=== PATIENT | male | born 2000 | race Caucasian/White ===

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

== ENCOUNTER 2020-06-26 18:46 | Emergency (ER) | payer OTHER ==
[2020-06-26] MEDS ORDERED: HYDROmorphone 0.5 MG/0.5 ML Syringe IM ONE (20:38)
--- NOTE | 2020-06-26 20:43 | EDM.PDOC ---
ED HPI GENERAL MEDICAL PROBLEM - General Chief Complaint: Genitourinary Problem Stated Complaint: LEFT SIDE AND TESTICLE BURNING NEEDLES Time Seen by Provider: 06/26/20 20:26 Source of Information: Reports: Patient, RN Notes Reviewed History Limitations: Reports: No Limitations - History of Present Illness INITIAL COMMENTS - FREE TEXT/NARRATIVE: Patient is a 19-year-old male who presents to the ED for evaluation of his left testicular swelling and tenderness. Patient notes that he has been having left groin pain that radiates into his left testicle, that feels like a sharp burning needle sensation, for the past few days. He did go to the clinic and was tested for STDs and states all of these were negative. He is further denying any burning or urinary frequency or urgency. He is not noticing any discharge coming from the penis. He is appreciating a little bit of swelling on the left side, along with tenderness along the posterior teste. He is not felt any pain like this before. He has had no abdomen surgeries. He did not take any sort of pain medications prior to this. He is not having any fevers or chills, cough some shortness of breath, nausea/vomiting/diarrhea. Left Upper Abdomen Pain Score (Numeric/FACES): 5 - Related Data Allergies Allergy/AdvReac Type Severity Reaction Status Date / Time No Known Allergies Allergy Verified 06/26/20 19:33 Home Meds: Home Meds Doxycycline [Vibramycin] 100 mg PO BID 14 Days #28 tab 06/26/20 [Rx] Hydrocodone/Acetaminophen [Hydrocodone-Acetamin 5-325 mg] 1 each PO Q6H PRN #12 tablet 06/26/20 [Rx] Past Medical History - Past Health History Medical/Surgical History: Denies Medical/Surgical History Cardiovascular History: Reports: None Respiratory History: Reports: None Gastrointestinal History: Reports: None Oncologic (Cancer) History: Reports: None - Past Surgical History HEENT Surgical History: Reports: Adenoidectomy, Myringotomy w Tube(s), Tonsillectomy Musculoskeletal Surgical History: Reports: Arthroscopic Knee, Other (See Below) Other Musculoskeletal Surgeries/Procedures:: bilateral wrist sx Social & Family History - Family History Family Medical History: Noncontributory - Tobacco Use Smoking Status *Q: Current Every Day Smoker Years of Tobacco use: 2 Packs/Tins Daily: 1 - Caffeine Use Caffeine Use: Reports: Coffee, Energy Drinks, Soda, Tea - Recreational Drug Use Recreational Drug Use: No - Living Situation & Occupation Living situation: Reports: with Family Occupation: Student ED ROS GENERAL - Review of Systems Review Of Systems: Comprehensive ROS is negative, except as noted in HPI. ED EXAM, RENAL/ - Physical Exam Exam: See Below Exam Limited By: No Limitations General Appearance: Alert, WD/WN, No Apparent Distress Respiratory/Chest: No Respiratory Distress, Lungs Clear, Normal Breath Sounds, No Accessory Muscle Use, Chest Non-Tender Cardiovascular: Normal Peripheral Pulses, Regular Rate, Rhythm, No Murmur (Male) Exam: No Hernia, Normal Inspection, Circumcised, Scrotal Swelling (mild; tipple greaser present in room), Scrotum Tenderness (L) (mild), Testicular Tenderness (L) (mild). No: Urethral Discharge Neurological: Alert, Oriented, Normal Cognition, No Motor/Sensory Deficits Psychiatric: Normal Affect, Normal Mood Skin Exam: Warm, Dry, Intact, Normal Color, No Rash Course - Vital Signs Last Recorded V/S: Last Vital Signs Temp 98.8 F 06/26/20 19:31 Pulse 86 06/26/20 19:31 Resp 19 06/26/20 19:31 BP 127/102 H 06/26/20 19:31 Pulse Ox 99 06/26/20 19:31 - Orders/Labs/Meds Meds: Medications Discontinued Medications Generic Name Dose Route Start Last Admin Trade Name Onesimoq PRN Reason Stop Dose Admin Doxycycline Hyclate 100 mg 06/26/20 22:12 Vibramycin PO 06/26/20 22:13 ONETIME ONE Hydromorphone HCl 0.5 mg 06/26/20 20:38 06/26/20 20:54 Dilaudid IM 06/26/20 20:39 0.5 mg ONETIME ONE Administration - Re-Assessments/Exams Free Text/Narrative Re-Assessment/Exam: 06/26/20 20:42 Patient presents to the ED for evaluation of his testicular pain and swelling. Have ordered a scrotal ultrasound and contents for initial evaluation, along with 0.5 mg IM Dilaudid for pain management. 06/26/20 22:18 The patient's ultrasound demonstrated a small hypoechoic area within the left epididymitis possibly due to slight edema from epididymitis. Otherwise no additional abnormality are seen on the testicular ultrasound exam. Patient was started on doxycycline 100 mg twice daily x14 days. I did make him aware that if he does not get symptomatic relief within 3 days, that he should go see someone for reevaluation. He expressed understanding at this time. Departure - Departure Time of Disposition: 22:22 Disposition: Home, Self-Care 01 Condition: Good Clinical Impression: Epididymitis - Discharge Information *PRESCRIPTION DRUG MONITORING PROGRAM REVIEWED*: Yes *COPY OF PRESCRIPTION DRUG MONITORING REPORT IN PATIENT JOSE C: No Prescriptions: Doxycycline [Vibramycin] 100 mg PO BID 14 Days #28 tab Instructions: Epididymitis Referrals: Pasha Lua PA-C [Primary Care Provider] - Forms: ED Department Discharge Additional Instructions: You were evaluated in the ER today for your left-sided groin/testicular pain. Your ultrasound did demonstrate that you do have epididymitis, which is an infection of the structures that holds the testes in the scrotum. Management of this is antibiotics, you were given 100 mg doxycycline by mouth in the ER visit, and will be given a prescription for doxycycline, 1 tab 2 times a day for the next 14 days for further management. This antibiotic can take up to 48 hours to start working, if you are not getting any sort of symptomatic relief within 72 hours, you should seek medical care for reevaluation. Recommend you take 500 mg Tylenol or 600 mg ibuprofen every 6 hours as needed for further pain relief. Do not exceed 4000 mg Tylenol or 3200 mg ibuprofen in a 24-hour time span. You were given a prescription for a strong pain medication, hydrocodone/acetaminophen 5/325 mg., please take 1 tab every 6 hours as needed for pain not relieved by Tylenol or ibuprofen alone. Please note this medication does contain Tylenol in it, so do not take more than 4000 mg in a 24- hour time span. These medications can be addictive, so please take as few as possible to achieve adequate pain control. These meds can also be quite constipating, recommend that you increase your oral fluid intake and take a stool softener like MiraLAX while taking these medications. Do not drive while taking this medication. 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 Please return to the ER at any time if your symptoms change or worsen. Sepsis Event Note (ED) - Evaluation Sepsis Screening Result: No Definite Risk - Focused Exam Vital Signs: Vital Signs Temp Pulse Resp BP Pulse Ox 06/26/20 19:31 98.8 F 86 19 127/102 H 99
--- NOTE | 2020-06-26 22:01 | US ---
Testicular ultrasound: Multiple real-time images of the testicles were obtained. Comparison: No prior testicular imaging is available. Both testicles have a homogeneous ultrasound appearance. No intratesticular abnormality is seen. Both arterial and venous blood flow are seen within the testicles. No hydrocele is seen. Small hypoechoic area is noted within the left epididymis. This may represent slight edema from mild left-sided epididymitis. No hydroceles are seen. Measurements: Right testicle: 4.4 x 3.1 x 2.2 cm Left testicle: 4.4 x 3.1 x 2.4 cm. Impression: 1. Small hypoechoic area within the left epididymis possibly due to slight edema from epididymitis. 2. No additional abnormality is seen on testicular ultrasound exam. Diagnostic code #3 This report was dictated in MDT
[2020-06-26] MEDS ORDERED: Doxycycline 100 MG Cap PO ONE (22:12)
[2020-06-27 00:36] VITALS: BP 140/59; PULSE 64
== END 2020-06-26 22:42 | disposition home or self-care (01) ==
LOC: JD.ED 18:46
DX: N45.1 Epididymitis (principal); F17.210 Nicotine dependence, cigarettes, uncomplicated
CPT/HCPCS: 76870; 93975; 96372; 99284; A9270; J1170; 99283

== ENCOUNTER 2020-07-01 04:36 | Emergency (ER) | payer OTHER ==
--- NOTE | 2020-07-01 04:59 | EDM.PDOC ---
ED HPI GENERAL MEDICAL PROBLEM - General Chief Complaint: Genitourinary Problem Stated Complaint: burning in the badomin area and Testicular pain Time Seen by Provider: 07/01/20 04:54 - History of Present Illness INITIAL COMMENTS - FREE TEXT/NARRATIVE: 19-year-old male presents the emergency room with pain and burning in the testicular area. This is been going on for couple of weeks. Patient was seen here on the diagnosed with epididymitis demonstrated on ultrasound and was started on doxycycline 100 mg twice daily for 14 days. The patient presents today not getting any better. He is not aware of any fevers or chills he has not had any abdominal symptoms such as nausea vomiting constipation or diarrhea. Patient denies any urethral drainage or discharge. He denies any history of anal intercourse. Scrotum Pain Score (Numeric/FACES): 5 - Related Data Allergies Allergy/AdvReac Type Severity Reaction Status Date / Time No Known Allergies Allergy Verified 07/01/20 05:31 Home Meds: Home Meds Doxycycline [Vibramycin] 100 mg PO BID 14 Days #28 tab 06/26/20 [Rx] Hydrocodone/Acetaminophen [Hydrocodone-Acetamin 5-325 mg] 1 each PO Q6H PRN #12 tablet 06/27/20 [Rx] Past Medical History - Past Health History Medical/Surgical History: Denies Medical/Surgical History Cardiovascular History: Reports: None Respiratory History: Reports: None Gastrointestinal History: Reports: None Oncologic (Cancer) History: Reports: None - Past Surgical History HEENT Surgical History: Reports: Adenoidectomy, Myringotomy w Tube(s), Tonsillectomy Musculoskeletal Surgical History: Reports: Arthroscopic Knee, Other (See Below) Other Musculoskeletal Surgeries/Procedures:: bilateral wrist sx Social & Family History - Family History Family Medical History: Noncontributory - Caffeine Use Caffeine Use: Reports: Coffee, Energy Drinks, Soda, Tea - Living Situation & Occupation Living situation: Reports: with Family Occupation: Student ED ROS GENERAL - Review of Systems Review Of Systems: See Below Constitutional: Reports: No Symptoms HEENT: Reports: No Symptoms Respiratory: Reports: No Symptoms Cardiovascular: Reports: No Symptoms Endocrine: Reports: No Symptoms GI/Abdominal: Denies: Constipation, Diarrhea, Nausea, Vomiting : Reports: Other (Testicular pain left much more so than right radiating proximally). Denies: Frequency, Urgency Skin: Reports: No Symptoms Neurological: Reports: No Symptoms Psychiatric: Reports: No Symptoms Hematologic/Lymphatic: Reports: No Symptoms Immunologic: Reports: No Symptoms ED EXAM, GI/ABD - Physical Exam Exam: See Below Exam Limited By: No Limitations General Appearance: Alert, No Apparent Distress Head: Atraumatic, Normocephalic Neck: Normal Inspection, Supple, Non-Tender, Full Range of Motion Respiratory/Chest: No Respiratory Distress, Lungs Clear, Normal Breath Sounds Cardiovascular: Regular Rate, Rhythm, No Edema, No Murmur GI/Abdominal Exam: Normal Bowel Sounds, Soft, Other (No palpable tenderness however the patient complains of pain radiating proximally from the left testicle. No rigidity rebound or guarding.) Back Exam: Normal Inspection. No: CVA Tenderness (L), CVA Tenderness (R) Neurological: Alert, Oriented, Normal Cognition Course - Vital Signs Last Recorded V/S: Last Vital Signs Temp 36.4 C 07/01/20 04:49 Pulse 78 07/01/20 04:49 Resp 18 07/01/20 04:49 BP 129/82 07/01/20 04:49 Pulse Ox 99 07/01/20 04:49 - Orders/Labs/Meds Orders: Active Orders 24 hr Category Date Time Status CULTURE URINE [RM] Stat Lab 07/01/20 05:14 Received Labs: Laboratory Tests 07/01/20 07/01/20 Range/Units 05:14 05:14 Urine Color Yellow (Yellow) Urine Appearance Clear (Clear) Urine pH 6.0 (5.0-8.0) Ur Specific [place] > or = 1.030 (1.005-1.030) Urine Protein Negative (Negative) Urine Glucose (UA) Negative (Negative) Urine Ketones Negative (Negative) Urine Occult Blood Negative (Negative) Urine Nitrite Negative (Negative) Urine Bilirubin Negative (Negative) Urine Urobilinogen 0.2 (0.2-1.0) Ur Leukocyte Esterase Negative (Negative) C trachomatis DNA (PCR) Not detected N gonorrhoeae DNA (PCR) Not detected Meds: Medications Discontinued Medications Generic Name Dose Route Start Last Admin Trade Name Freq PRN Reason Stop Dose Admin Ceftriaxone Sodium 1 gm/ 0 gm 07/01/20 05:33 07/01/20 05:57 Lidocaine HCl 2.1 ml IM 07/01/20 05:34 2.1 inj ONETIME ONE Administration - Re-Assessments/Exams Free Text/Narrative Re-Assessment/Exam: 07/01/20 05:47 Urine sent for culture sensitivity urinalysis and GC and chlamydia results of this could be obstructed because of doxycycline treatment. We will give him 1 g of Rocephin 4 times the usual dose to cover GC however with the unreliable culture and sensitivity other unpredictable organisms could be present. We will have him continue the doxycycline for the remainder of the 14-day course. Departure - Departure Time of Disposition: 07:04 Disposition: Home, Self-Care 01 Clinical Impression: Epididymitis - Discharge Information Referrals: Pasha Lua PA-C [Primary Care Provider] - Forms: ED Department Discharge Additional Instructions: Turn to the emergency room with any questions problems or worsening symptoms. Follow-up in the clinic with your regular healthcare provider early this next week for recheck. Continue the doxycycline 1 twice a day until all gone Sepsis Event Note (ED) - Evaluation Sepsis Screening Result: No Definite Risk - Focused Exam Vital Signs: Vital Signs Temp Pulse Resp BP Pulse Ox 07/01/20 04:49 36.4 C 78 18 129/82 99 - My Orders Last 24 Hours: My Active Orders 07/01/20 05:14 CULTURE URINE [RM] Stat - Assessment/Plan Last 24 Hours: My Active Orders 07/01/20 05:14 CULTURE URINE [RM] Stat
[2020-07-01 05:06] VITALS: BP 129/82; PULSE 78
[2020-07-01] MEDS ORDERED: cefTRIAXone 1 GM, Lidocaine 1% 2.1 ML IM ONE ×2 (05:33)
[2020-07-01 07:01] LABS: C. TRACHOMATIS BY PCR NOT DETECTED; N. GONORRHOEAE BY PCR NOT DETECTED
== END 2020-07-01 07:25 | disposition home or self-care (01) ==
LOC: JD.ED 04:36
DX: N45.1 Epididymitis (principal)
CPT/HCPCS: 81003; 87086; 87491; 87591; 96372; 99284; J0696; J2001; 99283

== ENCOUNTER 2020-07-07 01:21 | Emergency (ER) | payer OTHER ==
[2020-07-07 01:34] VITALS: BP 159/86; PULSE 92
[2020-07-07] MEDS ORDERED: LORazepam 1 MG Tab PO ONE (01:34)
[2020-07-07] MEDS ORDERED: Ondansetron 4 MG Tab.DIS PO ONE (01:35)
--- NOTE | 2020-07-07 01:35 | EDM.PDOCBH ---
ED HPI GENERAL MEDICAL PROBLEM - General Chief Complaint: Behavioral/Psych Stated Complaint: HEART RACING/TESTICLES ARE SORE Time Seen by Provider: 07/07/20 01:33 Source of Information: Reports: Patient History Limitations: Reports: No Limitations - History of Present Illness INITIAL COMMENTS - FREE TEXT/NARRATIVE: 19-year-old male presents to the ED feeling very anxious and restless since smoking marijuana but I hour ago. He states he started to feel generalized body aches particularly his low back muscles. Diffuse tremulousness. Some shortness of breath. Feels like his heart is racing. Not sure of the source of the marijuana whether it could have been laced with a stimulant. Denies headache. Mild associated nausea. Secondly he reports he has been having problems with primarily left testicular pain for greater than a month. He has been seen through the ED twice in the last month for similar complaints. Diagnosis is that of a left epididymitis on ultrasound done on first visit. Most recently he was reexamined and given Rocephin 1 g IM to cover for gonorrhea. He is on doxycycline 100 mg twice daily to cover for chlamydia infection. He states pain is not getting better on greater than 10 days of doxycycline. Once he is settled down from the effect of stimulant and marijuana that he is recently smoked I will reevaluate his testicular discomfort. Onset: Today, Sudden Onset Date: 07/07/20 Onset Time: 00:35 Duration: Minutes: Location: Reports: Generalized (Neurolysed sense of anxiety with heart racing tremulousness low back pain generally uneasy feeling.) Quality: Reports: Other (Feels anxious with tachycardia since smoking marijuana which) Severity: Moderate (may have been laced with alternative stimulant.) Improves with: Reports: None Worsens with: Reports: None Context: Reports: Other (Symptoms started after smoking marijuana tonight.). Denies: Activity, Exercise, Lifting, Sick Contact, Trauma Associated Symptoms: Reports: Loss of Appetite, Malaise, Other (Feels like his heart is racing. Tremulousness generalized myalgia). Denies: Confusion, Chest Pain, Cough, cough w sputum, Diaphoresis, Fever/Chills, Headaches, Nausea/Vomiting, Rash, Shortness of Breath, Syncope Treatments X [employer] REPA[employer]ER: Reports: Other (see below) (None.) Scrotum Pain Score (Numeric/FACES): 8 - Related Data Allergies Allergy/AdvReac Type Severity Reaction Status Date / Time No Known Allergies Allergy Verified 07/07/20 01:34 Home Meds: Home Meds Ciprofloxacin HCl [Cipro] 500 mg PO BID #60 tablet 07/07/20 [Rx] Past Medical History - Past Health History Medical/Surgical History: Denies Medical/Surgical History Cardiovascular History: Reports: None Respiratory History: Reports: None Gastrointestinal History: Reports: None Genitourinary History: Reports: Other (See Below) Other Genitourinary History: epididymitis Oncologic (Cancer) History: Reports: None - Past Surgical History HEENT Surgical History: Reports: Adenoidectomy, Myringotomy w Tube(s), Tonsillectomy Musculoskeletal Surgical History: Reports: Arthroscopic Knee, Other (See Below) Other Musculoskeletal Surgeries/Procedures:: bilateral wrist sx Social & Family History - Family History Family Medical History: Noncontributory - Caffeine Use Caffeine Use: Reports: Coffee, Energy Drinks, Soda, Tea - Living Situation & Occupation Living situation: Reports: with Family Occupation: Student ED ROS GENERAL - Review of Systems Review Of Systems: See Below Constitutional: Reports: Decreased Appetite. Denies: Fever, Chills, Malaise, Weakness, Fatigue, Weight Loss HEENT: Reports: No Symptoms Respiratory: Reports: Shortness of Breath. Denies: Wheezing, Pleuritic Chest Pain, Cough, Sputum Cardiovascular: Denies: Chest Pain, Blood Pressure Problem, Claudication, Dyspnea on Exertion, Edema, Lightheadedness, Orthopnea, Palpitations Endocrine: Reports: No Symptoms GI/Abdominal: Reports: Nausea : Reports: Other (He has having persistence pain in his left testicle. This is in spite of being on doxycycline 100 mg twice a day for 14 days. Left testicular pain is been present primarily for about 5 weeks.) Musculoskeletal: Reports: Other Skin: Reports: No Symptoms (Use pain diffusely throughout his flanks and lower back left side worse than the right) Neurological: Reports: Tremors (Diffusely tremulous.). Denies: Confusion, Dizziness, Headache, Numbness, Pre-Existing Deficit, Seizure, Syncope, Tingling, Trouble Speaking, Difficulty Walking, Weakness Psychiatric: Reports: Anxiety Hematologic/Lymphatic: Reports: No Symptoms (Neurolysed anxiety) Immunologic: Reports: No Symptoms ED EXAM, BEHAVIORAL HEALTH - Physical Exam Exam: See Below Exam Limited By: No Limitations General Appearance: Alert, WD/WN, Moderate Distress, Other (Temperature is 36.2 with a heart rate of 92 respiratory 16 with O2 sats of 98% room air BP is elevated initially at 1 [id number].) Eye Exam: Bilateral Eye: Normal Inspection, PERRL Throat/Mouth: Normal Inspection, Normal Lips, Normal Teeth, Normal Oropharynx Head: Atraumatic, Normocephalic Neck: Normal Inspection, Supple, Non-Tender, Full Range of Motion. No: Lymphadenopathy (L), Lymphadenopathy (R) Respiratory/Chest: No Respiratory Distress, Lungs Clear, Normal Breath Sounds, No Accessory Muscle Use, Chest Non-Tender, Respiratory Distress Cardiovascular: Normal Peripheral Pulses, Regular Rate, Rhythm, No Edema, No Gallop (Oh 4/min 1 of my exam), No JVD, No Murmur, No Rub, Tachycardia GI/Abdominal: Normal Bowel Sounds, Soft, Non-Tender, No Organomegaly, No Abnormal Bruit, No Mass, Pelvis Stable, Other (Male) Exam: No Hernia, Cremasteric Reflex, Testicular Tenderness (L) (Patient has engorgement and marked tenderness localized to the inferior pole of the left testicle. The superior pole appears to be normal.), Other (Testicles completely normal. No testicular masses identified. Diagnosis is left epididymitis. Underlying infection most likely in the prostate gland with retrograde infection into the left epididymis.). No: Inguinal Lymphadenopathy, Scrotum Tenderness (R) Back Exam: Normal Inspection, Full Range of Motion. No: CVA Tenderness (L), CVA Tenderness (R) Extremities: Normal Inspection, Normal Range of Motion, Non-Tender, No Pedal Edema, Other (She is slight tremulous on outstretched hands.) Neurological: Alert, Normal Mood/Affect, CN II-XII Intact, Normal Cognition, Normal Gait, Normal Reflexes, No Motor/Sensory Deficits, Oriented x 3 Psychiatric: Oriented, Restless, Other (Anxious.) Skin Exam: Warm, Dry, Intact, Normal color, No rash COURSE, BEHAVIORAL HEALTH COMP - Course Vital Signs: Last Vital Signs Temp 36.2 C 07/07/20 01:29 Pulse 92 07/07/20 01:29 Resp 16 07/07/20 01:29 BP 159/86 H 07/07/20 01:29 Pulse Ox 98 07/07/20 01:29 Orders, Labs, Meds: Medications Discontinued Medications Generic Name Dose Route Start Last Admin Trade Name Eileen PRN Reason Stop Dose Admin Lorazepam 1.5 mg 07/07/20 01:34 07/07/20 01:42 Ativan PO 07/07/20 01:35 1.5 mg ONETIME ONE Administration Ondansetron HCl 4 mg 07/07/20 01:35 07/07/20 01:41 Zofran Odt PO 07/07/20 01:36 4 mg ONETIME ONE Administration Re-Assessment/Re-Exam: 19-year-old male attends the ED after smoking marijuana but an hour ago. He states subsequently he is felt restless somewhat agitated and tremulous. Diffuse low back discomfort feels like his heart is racing etc. Examination reveals that he is feeling very anxious. Questionable whether the marijuana was laced with some form of stimulant. His heart rate was 104 and sinus. Respiratory to is 18. Examination is otherwise normal other than a slightly elevated blood pressure. Further discussion led to the problems he has been having with left testicular pain not responding to oral doxycycline 100 mg twice daily for over 14 days. Left testicular pain has been present off and on for the last 6 weeks. Ultrasound was done as part of his initial work-up 6 weeks ago and revealed epididymitis of the left testicle. I will reexamine him after he is started to settle down. Plan will be to give him Ativan 1.5 mg p.o. with Zofran 4 mg sublingual for nausea and anxiety relief. Re-Assessment/Re-Exam Date: 07/07/20 (Patient is feeling better from the point of view of tremulousness and anxiety after having the Ativan orally. I have reviewed his left testicular pain and identified epididymitis involving the inferior pole of the left epididymis with thickening and marked tenderness. Most likely this is retrograde infection from the prostate gland.) Departure - Departure Time of Disposition: 02:22 Disposition: Home, Self-Care 01 Condition: Fair Clinical Impression: Adverse effect of cannabis (derivatives), initial encounter, Epididymitis, left - Discharge Information *PRESCRIPTION DRUG MONITORING PROGRAM REVIEWED*: Not Applicable *COPY OF PRESCRIPTION DRUG MONITORING REPORT IN PATIENT JOSE C: Not Applicable Prescriptions: Ciprofloxacin HCl [Cipro] 500 mg PO BID #60 tablet Referrals: Pasha Lua PA-C [Primary Care Provider] - Forms: ED Department Discharge Additional Instructions: Evaluation in the emergency room tonight in regards to adverse reaction to smoking marijuana. It appears the marijuana may have been laced with a stim ulant which caused an increase in your heart rate diffuse tremulousness and anxiety reaction. You were treated with Ativan 1.5 mg by mouth for this. In regards to persistent pain and tenderness left testicle examination reveals inflammation of the inferior pole of the left epididymis at the bottom of your left testicle with thickening and tenderness. Most likely this represents a retrograde infection from the prostate gland down the vas deferens to the testicle to cause this infection. Since a 14-day trial of doxycycline has failed to relieve the discomfort I would suggest discontinuing doxycycline and changing it to Cipro 500 mg twice daily for the next month. Back to improvement of the left testicular tenderness over the next 3 days but not complete resolution of the discomfort for at least 10 days. Make sure you finish all of the medication to prevent a reoccurrence in the near future. Sepsis Event Note (ED) - Evaluation Sepsis Screening Result: No Definite Risk - Focused Exam Vital Signs: Vital Signs Temp Pulse Resp BP Pulse Ox 07/07/20 01:29 36.2 C 92 16 159/86 H 98
== END 2020-07-07 02:31 | disposition home or self-care (01) ==
LOC: JD.ED 01:21
DX: N45.1 Epididymitis (principal); T40.7X5A Adverse effect of cannabis (derivatives), initial encounter; R00.0 Tachycardia, unspecified
CPT/HCPCS: 99283; A9270

== ENCOUNTER 2020-10-09 02:00 | Emergency (ER) | payer OTHER ==
[2020-10-09 02:10] VITALS: BP 158/85; PULSE 78
--- NOTE | 2020-10-09 02:56 | EDM.PDOC ---
ED HPI GENERAL MEDICAL PROBLEM - General Chief Complaint: Headache Stated Complaint: WRESTLING 2 WEEKS AGO POSSIBLE CONCUSION Time Seen by Provider: 10/09/20 02:24 Source of Information: Reports: Patient History Limitations: Reports: No Limitations - History of Present Illness INITIAL COMMENTS - FREE TEXT/NARRATIVE: Mr. Mancilla is a pleasant 20-year-old man who now presents the ED with a 2-week history of a headache. He states that he was wrestling with a cousin about 2 weeks ago, when the back right of his head struck a tile floor. He was not knocked unconscious. He states that his scalp was tender like a bruise, but that there was no swelling/hematoma, or laceration. States that he has had a headache in that area since. He reports having some nausea but no vomiting. No photophobia or phonophobia. He states that he occasionally sees some spots, but no flashing lights or wavy lines. No tingling, numbness, or weakness. He denies a history of headaches. The patient states that he has been taking Tylenol 1000 mg BID without improvement of his headache. He has not seen his PCP about this issue. Here in the ED, the patient's initial BP is found to be modestly elevated at 158/85, otherwise, he is hemodynamically stable, afebrile, saturating 100% on room air. Prior to 2 weeks ago, the patient denies having a recent fever, chills, sore throat, ear pain, nasal or sinus congestion, cough, dyspnea, chest pain, palpitations, nausea, vomiting, constipation, diarrhea, abdominal pain, urinary symptoms, recent weight gain or weight loss, recent bloody bowel movements or black bowel movements, recent joint aches, headaches, or rashes. The patient's PCP is FATUMA Urrutia. He has not received an influenza vaccine this season, but agreed to receive one here in the ED. Headache Pain Score (Numeric/FACES): 4 - Related Data Allergies Allergy/AdvReac Type Severity Reaction Status Date / Time No Known Allergies Allergy Verified 10/09/20 02:10 Home Meds: Home Meds Acetaminophen/Butalbital/Caff [Fioricet 325-50-40 MG] 2 tab PO ONETIME #2 tab [Rx] Past Medical History Psychiatric History: Reports: ADHD (untreated), Anxiety (untreated) - Past Surgical History HEENT Surgical History: Reports: Adenoidectomy, Myringotomy w Tube(s) (bilateral), Tonsillectomy Musculoskeletal Surgical History: Reports: Arthroscopic Knee (right), Other (See Below) (Bilateral wrist pinning) Social & Family History - Tobacco Use Tobacco Use Status *Q: Former Tobacco User Tobacco Use Within Last Twelve Months: Vaping (Nicotine) Years of Tobacco use: 4 Packs/Tins Daily: 0.5 Month/Year Tobacco Last Used: Quit 2019 - Caffeine Use Caffeine Use: Reports: None - Alcohol Use Alcohol Use History: Yes Alcohol Use Frequency: Socially - Recreational Drug Use Recreational Drug Use: No - Living Situation & Occupation Living situation: Reports: Single, with Family (Brother) Occupation: Employed ([employer]) ED ROS GENERAL - Review of Systems Review Of Systems: Comprehensive ROS is negative, except as noted in HPI. - Physical Exam Exam: See Below Exam Limited By: No Limitations General Appearance: Alert, WD/WN, No Apparent Distress Eye Exam: Bilateral Eye: EOMI, Normal Inspection, PERRL Ears: Normal External Exam, Normal Canal, Hearing Grossly Normal, Normal TMs Nose: Normal Inspection, Normal Mucosa, No Blood Throat/Mouth: Normal Inspection, Normal Lips, Normal Teeth, Normal Gums, Normal Oropharynx, Normal Voice, No Airway Compromise Head Exam: Atraumatic, Normocephalic (no abnormality to the posterior right skull) Neck: Normal Inspection, Supple, Non-Tender, Full Range of Motion Respiratory/Chest: No Respiratory Distress, Lungs Clear, Normal Breath Sounds, No Accessory Muscle Use Cardiovascular: Normal Peripheral Pulses, Regular Rate, Rhythm, No Edema, No Gallop, No JVD, No Murmur, No Rub GI/Abdominal: Normal Bowel Sounds, Soft, Non-Tender, No Organomegaly, No Distention, No Abnormal Bruit, No Mass Neuro Exam (Abbreviated): Alert, Oriented, CN II-XII Intact, Normal Cognition, No Motor/Sensory Deficits Back Exam: Normal Inspection, Full Range of Motion, NT Extremities: Normal Inspection, Normal Range of Motion, No Pedal Edema, Normal Capillary Refill Psychiatric: Normal Affect Skin Exam: Warm, Dry, Intact, Normal Color, No Rash Course - Vital Signs Last Recorded V/S: Last Vital Signs Temp 37.0 C 10/09/20 02:07 Pulse 78 10/09/20 02:07 Resp 16 10/09/20 02:07 BP 158/85 H 10/09/20 02:07 Pulse Ox 100 10/09/20 02:07 - Orders/Labs/Meds Meds: Medications Discontinued Medications Generic Name Dose Route Start Last Admin Trade Name Eileen PRN Reason Stop Dose Admin Influenza Virus Vaccine 1 each 10/09/20 02:49 Pharmacy To Dose - Influenza Vaccine IM 10/09/20 02:50 ONETIME ONE Influenza Virus Vaccine 60 mcg 10/09/20 03:00 10/09/20 03:01 Fluzone Quad Syringe IM 10/09/20 03:01 60 mcg .ONCE ONE Administration - Re-Assessments/Exams Free Text/Narrative Re-Assessment/Exam: 10/09/20 02:49 As above, the patient has had a posterior right headache ever since striking the back right of his head on the floor while wrestling about 2 weeks ago, however, he was not knocked unconscious at that time, and states that while his scalp was a little tender at the time, he did not even have a hematoma. Since then, while he has had a headache, he is not describing concussion-like symptoms, and we would not expect him to have suffered a concussion given the relatively minor mechanism of injury. His neurologic examination tonight is completely normal. His headache is likely a tension type headache, although a medication overuse headache (acetaminophen) is also possible. New onset migraine is even less likely. The patient does not meet criterion for an emergency CT of his head, since he was not knocked unconscious, there is no suggestion that he suffered an open or depressed skull fracture, there is no sign of a basal skull fracture, he is not on an anticoagulant, he has not had a posttraumatic seizure, and while he states that he has had some nausea, he has not had any vomiting. For tonight's purposes, I would like to treat the patient with 2 tablets of Fioricet to see if we can knock the headache out. Unfortunately, the patient states that he drove himself here and he does not have another way of getting home. I will therefore write him a prescription for 2 tablets of Fioricet that he can take whenever he does not have to drive for 12 hours afterwards. I would like him to stop taking the acetaminophen altogether, especially since he states it is not helping. If his headache persists, he should follow-up with his PCP for further evaluation that may include an outpatient MRI of the head and/or referral to a Neurologist. The patient will be given an influenza vaccine prior to being discharged. Departure - Departure Time of Disposition: 02:51 Disposition: Home, Self-Care 01 Condition: Good Clinical Impression: Headache - Discharge Information *PRESCRIPTION DRUG MONITORING PROGRAM REVIEWED*: Not Applicable *COPY OF PRESCRIPTION DRUG MONITORING REPORT IN PATIENT JOSE C: Not Applicable Prescriptions: Acetaminophen/Butalbital/Caff [Fioricet 325-50-40 MG] 2 tab PO ONETIME #2 tab Instructions: Tension Headache, Adult, [id number] Referrals: Pasha Lua PA-C [Primary Care Provider] - Forms: ED Department Discharge Additional Instructions: You were seen in the emergency room for a headache after striking the back of your head 2 weeks ago. Based on your history and physical examination, your headache is most likely a tension-type headache, although a medication overuse headache is possible. A migraine is unlikely. You have not suffered a concussion. You have been prescribed 2 tablets of the anti-headache medicine Fioricet. Take both at the same time however, you are not to drive or operate heavy machinery for 12 hours after taking them. Stay adequately hydrated. As discussed, you need to stop taking the acetaminophen (Tylenol). If your headache persists despite taking the Fioricet, we recommend that you follow-up with your PCP for further evaluation, that may include an outpatient MRI of your head and/or a referral to a Neurologist. If any other problems, please do not hesitate to return to the ER. You were given an influenza vaccine during your ER visit. Sepsis Event Note (ED) - Evaluation Sepsis Screening Result: No Definite Risk - Focused Exam Vital Signs: Vital Signs Temp Pulse Resp BP Pulse Ox 10/09/20 02:07 37.0 C 78 16 158/85 H 100
[2020-10-09] MEDS ORDERED: FLU VACC QS2020-21(6MOS UP)/PF 60 MCG/0.5 ML SYRINGE IM ONE (03:00)
== END 2020-10-09 03:07 | disposition home or self-care (01) ==
LOC: JD.ED 02:00
DX: R51.9 Headache, unspecified (principal); Z87.891 Personal history of nicotine dependence; Z23 Encounter for immunization
CPT/HCPCS: 90686; 99283; 99283-25; G0008

== ENCOUNTER 2020-10-15 19:16 | Emergency (ER) | payer OTHER ==
[2020-10-15] MEDS ORDERED: Ondansetron 4 MG/2 ML SDV IVPUSH ONE (19:35)
[2020-10-15] MEDS ORDERED: Sodium Chloride 0.9% 1,000 ML IV STA (19:35)
[2020-10-15] MEDS ORDERED: Ketorolac 30 MG/ML SDV IVPUSH ONE (19:35)
--- NOTE | 2020-10-15 19:48 | EDM.PDOC ---
ED HPI GENERAL MEDICAL PROBLEM - General Chief Complaint: Headache Stated Complaint: HEAD PAIN/PRESSURE Time Seen by Provider: 10/15/20 19:25 Source of Information: Reports: Patient, RN Notes Reviewed History Limitations: Reports: No Limitations - History of Present Illness INITIAL COMMENTS - FREE TEXT/NARRATIVE: Patient is a 20-year-old male presenting to the emergency department with complaints of a 3-week history of head pressure, nausea, dizziness, and "seeing white stars ". He states that about 3 weeks ago he was wrestling with his friend and hit the back of his head on a ceramic tile floor. He did not lose consciousness, but states he has been having these headaches since that time. He was seen in this emergency department 1 week ago with similar complaints. At that time, he was treated for tension headache with Fioricet advised to follow- up with PCP if symptoms do not improve. He has not followed up with his PCP, Pasha Lua, thus far. He denies any nasal congestion, ear pain, nasal drainage, fever, or chills. He does feel nauseous but denies vomiting. Frontal Headache Pain Score (Numeric/FACES): 6 - Related Data Allergies Allergy/AdvReac Type Severity Reaction Status Date / Time No Known Allergies Allergy Verified 10/15/20 19:28 Home Meds: Home Meds Acetaminophen/Butalbital/Caff [Fioricet 325-50-40 MG] 1 each PO Q4H PRN #12 tab 10/15/20 [Rx] Past Medical History - Past Health History Medical/Surgical History: Denies Medical/Surgical History Cardiovascular History: Reports: None Respiratory History: Reports: None Gastrointestinal History: Reports: None Genitourinary History: Reports: Other (See Below) Other Genitourinary History: epididymitis Psychiatric History: Reports: ADHD, Anxiety Oncologic (Cancer) History: Reports: None - Past Surgical History HEENT Surgical History: Reports: Adenoidectomy, Myringotomy w Tube(s), Tonsillectomy Musculoskeletal Surgical History: Reports: Arthroscopic Knee, Other (See Below) Other Musculoskeletal Surgeries/Procedures:: bilateral wrist sx Social & Family History - Family History Family Medical History: No Pertinent Family History - Tobacco Use Tobacco Use Status *Q: Current Every Day Tobacco User Years of Tobacco use: 4 Packs/Tins Daily: 1 - Caffeine Use Caffeine Use: Reports: None - Recreational Drug Use Recreational Drug Use: No - Living Situation & Occupation Living situation: Reports: Single, with Family (Brother) Occupation: Employed ([employer]) ED ROS GENERAL - Review of Systems Review Of Systems: See Below Constitutional: Reports: No Symptoms. Denies: Fever, Chills, Weakness HEENT: Reports: No Symptoms Respiratory: Reports: No Symptoms Cardiovascular: Reports: No Symptoms Endocrine: Reports: No Symptoms GI/Abdominal: Reports: No Symptoms : Reports: No Symptoms Musculoskeletal: Reports: No Symptoms Skin: Reports: No Symptoms Neurological: Reports: Dizziness, Headache. Denies: Confusion, Syncope, Trouble Speaking, Difficulty Walking, Change in Speech, Gait Disturbance Psychiatric: Reports: No Symptoms Hematologic/Lymphatic: Reports: No Symptoms Immunologic: Reports: No Symptoms - Physical Exam Exam: See Below Exam Limited By: No Limitations General Appearance: Alert, WD/WN, No Apparent Distress Head Exam: Atraumatic, Normocephalic. No: Sinus Tenderness Neck: Normal Inspection, Supple, Non-Tender, Full Range of Motion Respiratory/Chest: No Respiratory Distress, Lungs Clear, Normal Breath Sounds, No Accessory Muscle Use, Chest Non-Tender Cardiovascular: Normal Peripheral Pulses, Regular Rate, Rhythm, No Edema, No Gallop, No JVD, No Murmur, No Rub Neuro Exam (Abbreviated): Alert, Oriented, CN II-XII Intact, Normal Cognition, Normal Gait, Normal Reflexes, No Motor/Sensory Deficits Psychiatric: Normal Affect, Normal Mood Skin Exam: Warm, Dry, Intact, Normal Color, No Rash Course - Vital Signs Last Recorded V/S: Last Vital Signs Temp 98.1 F 10/15/20 19:25 Pulse 93 10/15/20 19:25 Resp 17 10/15/20 19:25 BP 134/77 10/15/20 19:25 Pulse Ox 99 10/15/20 19:25 - Orders/Labs/Meds Meds: Medications Discontinued Medications Generic Name Dose Route Start Last Admin Trade Name Onesimoq PRN Reason Stop Dose Admin Sodium Chloride 1,000 mls @ 999 mls/hr 10/15/20 19:35 10/15/20 19:48 Normal Saline IV 10/15/20 20:35 999 mls/hr NOW STA Administration Ketorolac Tromethamine 30 mg 10/15/20 19:35 10/15/20 19:47 Toradol IVPUSH 10/15/20 19:36 30 mg ONETIME ONE Administration Ondansetron HCl 4 mg 10/15/20 19:35 10/15/20 19:47 Zofran IVPUSH 10/15/20 19:36 4 mg ONETIME ONE Administration - Re-Assessments/Exams Free Text/Narrative Re-Assessment/Exam: Pt is a 20 year old male presenting to the ER with c/o headache, dizziness, and nausea intermittently for the last 3 weeks after hitting his head on the floor. He was seeing this ER 1 week ago for the same c/o and states it has not improved. He has been using tylenol which he states doesn't help and yesterday started taking Kratom twice a day. I discussed with him the adverse effects that Kratom can have and recommended that he stop taking this. His exam is unremarkable. Neurologic exam is normal and he has no sinus tenderness. He is c/o nausea as well. I have ordered a head CT without contrast, a 1L bolus NS, Toradol 30mg IV, and Zofran 4mg IV. 10/15/20 20:26 Patient's headache has improved with the Toradol and Zofran. CT of the head shows nothing acute. Discussed with patient that I would recommend consult with her chiropractor as he likely zeinab his neck when he hit his head which could be causing the repetitive tension headaches. I will send a short course of Fioricet to [facility] on [address]. If symptoms do not improve or resolve by next week, he should follow-up with his PCP. Discharge instructions as documented. Departure - Departure Time of Disposition: 20:26 Disposition: Home, Self-Care 01 Condition: Good Clinical Impression: Headache Qualifiers: Headache type: tension-type Headache chronicity pattern: acute headache Intractability: not intractable Qualified Code(s): G44.209 - Tension-type headache, unspecified, not intractable - Discharge Information *PRESCRIPTION DRUG MONITORING PROGRAM REVIEWED*: No *COPY OF PRESCRIPTION DRUG MONITORING REPORT IN PATIENT JOSE C: No Prescriptions: Acetaminophen/Butalbital/Caff [Fioricet 325-50-40 MG] 1 each PO Q4H PRN #12 tab PRN Reason: Headache Instructions: General Headache Without Cause, [id number] Referrals: Pasha Lua PA-C [Primary Care Provider] - Forms: ED Department Discharge, ED Return to Work/School Form Additional Instructions: You were seen in the emergency department for ongoing headache with nausea for the last [address] was completed in the ER and was found to be normal. While in the ER, you received Toradol for pain and Zofran for nausea which did resolve your symptoms. A prescription for Fioricet has been sent to [facility] on [address]. Take this medication as prescribed. Recommend to schedule appointment with chiropractor as it is definite possible that you zeinab your neck when you hit your head which is causing these repetitive tension headaches. If your symptoms fail to improve by early next week, recommend follow-up with your primary care provider. Return to ER as needed. Sepsis Event Note (ED) - Evaluation Sepsis Screening Result: No Definite Risk - Focused Exam Vital Signs: Vital Signs Temp Pulse Resp BP Pulse Ox 10/15/20 19:25 98.1 F 93 17 134/77 99
--- NOTE | 2020-10-15 20:02 | CT ---
Head CT Technique: Multiple axial sections through the brain were obtained. Intravenous contrast was not utilized. Reconstructed coronal and sagittal images were obtained. Comparison: Prior head CT study of 06/15/19. Findings: Ventricles along with basal cisterns and sulci over the convexities are within normal limits for the patient's age. No abnormal parenchymal densities are seen. No evidence of intracranial hemorrhage. No midline shift or mass-effect is appreciated. Bone window settings were reviewed. Visualized paranasal sinuses and mastoid sinuses show nothing acute. No acute calvarial finding is appreciated. Impression: 1. Nothing acute is seen on noncontrast head CT exam. Diagnostic code #1
[2020-10-15 21:06] VITALS: BP 137/73; PULSE 80
== END 2020-10-15 21:02 | disposition home or self-care (01) ==
LOC: JD.ED 19:16
DX: G44.209 Tension-type headache, unspecified, not intractable (principal); Z72.0 Tobacco use
CPT/HCPCS: 70450; 96374; 96375; 99284; J1885; J2405; J7030

== ENCOUNTER 2020-11-19 00:15 | Emergency (ER) | payer OTHER ==
[2020-11-19 00:27] VITALS: BP 154/83; PULSE 79
[2020-11-19] MEDS ORDERED: Sodium Chloride 0.9% 10 ML Syringe FLUSH PRN (00:53)
[2020-11-19] MEDS ORDERED: Ondansetron 4 MG/2 ML SDV IVPUSH ONE (00:53)
[2020-11-19] MEDS ORDERED: Ketorolac 30 MG/ML SDV IVPUSH ONE (00:54)
[2020-11-19] MEDS ORDERED: Sodium Chloride 0.9% 1,000 ML IV SCH (01:00)
--- NOTE | 2020-11-19 02:55 | EDM.PDOC ---
ED HPI GENERAL MEDICAL PROBLEM - General Chief Complaint: Flank Pain Stated Complaint: BACK PAIN Time Seen by Provider: 11/19/20 00:49 Source of Information: Reports: Patient History Limitations: Reports: No Limitations - History of Present Illness INITIAL COMMENTS - FREE TEXT/NARRATIVE: The patient presents with left sided flank pain that radiates to the left abdomen. This started about 3 days ago. He has nausea with it but no vomiting. He has no hematuria or dysuria. He has no history of kidney stones. He was a little lightheaded earlier. He has no fever, chills, cough, congestion, runny nose, chest pain or shortness of breath. He has no major medical problems. Onset: Gradual Duration: Day(s): (3) Location: Reports: Abdomen, Back Quality: Reports: Sharp Severity: Severe Improves with: Reports: None Worsens with: Reports: None Associated Symptoms: Reports: Nausea/Vomiting. Denies: Chest Pain, Cough, Fever/Chills, Headaches, Shortness of Breath Left Flank Pain Score (Numeric/FACES): 6 - Related Data Allergies Allergy/AdvReac Type Severity Reaction Status Date / Time No Known Allergies Allergy Verified 11/19/20 00:27 Home Meds: Home Meds Cyclobenzaprine [Flexeril] 10 mg PO TID PRN #10 tab 11/19/20 [Rx] Past Medical History - Past Health History Medical/Surgical History: Denies Medical/Surgical History Cardiovascular History: Reports: None Respiratory History: Reports: None Gastrointestinal History: Reports: None Genitourinary History: Reports: Other (See Below) Other Genitourinary History: epididymitis Psychiatric History: Reports: ADHD, Anxiety Oncologic (Cancer) History: Reports: None - Past Surgical History HEENT Surgical History: Reports: Adenoidectomy, Myringotomy w Tube(s), Tonsillectomy Musculoskeletal Surgical History: Reports: Arthroscopic Knee, Other (See Below) Other Musculoskeletal Surgeries/Procedures:: bilateral wrist sx Social & Family History - Family History Family Medical History: No Pertinent Family History - Tobacco Use Tobacco Use Status *Q: Former Tobacco User Years of Tobacco use: 2 Packs/Tins Daily: 0.5 Used Tobacco, but Quit: Yes Month/Year Tobacco Last Used: 2 years ago - Caffeine Use Caffeine Use: Reports: None - Recreational Drug Use Recreational Drug Use: No - Living Situation & Occupation Living situation: Reports: Single, with Family (Brother) Occupation: Employed ([employer]) ED ROS GENERAL - Review of Systems Review Of Systems: See Below Constitutional: Reports: No Symptoms HEENT: Reports: No Symptoms Respiratory: Reports: No Symptoms Cardiovascular: Reports: No Symptoms Endocrine: Reports: No Symptoms GI/Abdominal: Reports: Abdominal Pain, Nausea. Denies: Diarrhea, Vomiting : Reports: Flank Pain (left flank) Musculoskeletal: Reports: Back Pain (left flank) Skin: Reports: No Symptoms Neurological: Reports: No Symptoms ED EXAM, GI/ABD - Physical Exam Exam: See Below Exam Limited By: No Limitations General Appearance: Alert, No Apparent Distress Ears: Normal External Exam Nose: Normal Inspection Head: Atraumatic, Normocephalic Neck: Normal Inspection Respiratory/Chest: No Respiratory Distress, Lungs Clear, Normal Breath Sounds Cardiovascular: Regular Rate, Rhythm, No Edema, No Murmur GI/Abdominal Exam: Soft, Non-Tender, No Organomegaly, No Mass Back Exam: CVA Tenderness (L) Extremities: Normal Inspection Course - Vital Signs Last Recorded V/S: Last Vital Signs Temp 98.4 F 11/19/20 00:21 Pulse 79 11/19/20 00:21 Resp 20 11/19/20 00:21 BP 154/83 H 11/19/20 00:21 Pulse Ox 100 11/19/20 00:21 - Orders/Labs/Meds Orders: Active Orders 24 hr Category Date Time Status Peripheral IV Care [RC] . DIRECTED Care 11/19/20 00:54 Active Abdomen Pelvis wo Cont [CT] Stat Exams 11/19/20 00:53 Taken GC/CHLAMYDIA BY PCR [MOLEC] Stat Lab 11/19/20 00:55 Ordered Sodium Chloride 0.9% [Normal Saline] 1,000 ml Med 11/19/20 01:00 Active IV ASDIRECTED Sodium Chloride 0.9% [Saline Flush] Med 11/19/20 00:53 Active 10 ml FLUSH ASDIRECTED PRN ED Antiemetic Medication Reflex [OM.PC] Stat Oth 11/19/20 00:53 Ordered Peripheral IV Insertion Adult [OM.PC] Stat Oth 11/19/20 00:53 Ordered Medication Orders Sodium Chloride (Normal Saline) 1,000 mls @ 125 mls/hr IV ASDIRECTED BARON Last Admin: 11/19/20 01:14 Dose: 125 mls/hr Documented by: AZEB Sodium Chloride (Saline Flush) 10 ml FLUSH ASDIRECTED PRN PRN Reason: Keep Vein Open Last Admin: 11/19/20 01:16 Dose: 10 ml Documented by: AZEB Labs: Laboratory Tests 11/19/20 11/19/20 11/19/20 Range/Units 00:57 00:57 01:18 WBC 8.62 (4.23-9.07) K/mm3 RBC 5.11 (4.63-6.08) M/mm3 Hgb 14.3 (13.7-17.5) gm/dl Hct 43.0 (40.1-51.0) % MCV 84.1 (79.0-92.2) fl MCH 28.0 (25.7-32.2) pg MCHC 33.3 (32.2-35.5) g/dl RDW Std Deviation 38.8 (35.1-43.9) fL Plt Count 267 (163-337) K/mm3 MPV 10.7 (9.4-12.3) fl Neut % (Auto) 62.2 (34.0-67.9) % Lymph % (Auto) 26.1 (21.8-53.1) % [place] % (Auto) 8.0 (5.3-12.2) % Eos % (Auto) 2.8 (0.8-7.0) Baso % (Auto) 0.8 (0.1-1.2) % Neut # (Auto) 5.36 (1.78-5.38) K/mm3 Lymph # (Auto) 2.25 (1.32-3.57) K/mm3 Mer[place] # (Auto) 0.69 (0.30-0.82) K/mm3 Eos # (Auto) 0.24 (0.04-0.54) K/mm3 Baso # (Auto) 0.07 (0.01-0.08) K/mm3 Sodium 141 (136-145) mEq/L Potassium 3.7 (3.5-5.1) mEq/L Chloride 106 (98-107) mEq/L Carbon Dioxide 27 (21-32) mEq/L Anion Gap 11.7 (5-15) BUN 19 H (7-18) mg/dL Creatinine 1.0 (0.7-1.3) mg/dL Est Cr Clr Drug Dosing 133.17 mL/min Estimated GFR (MDRD) > 60 (>60) mL/min BUN/Creatinine Ratio 19.0 H (14-18) Glucose 97 (74-106) mg/dL Calcium 8.7 (8.5-10.1) mg/dL Total Bilirubin 0.3 (0.2-1.0) mg/dL AST 18 (15-37) U/L ALT 29 (16-63) U/L Alkaline Phosphatase 69 (46-116) U/L Total Protein 6.7 (6.4-8.2) g/dl Albumin 4.0 (3.4-5.0) g/dl Globulin 2.7 gm/dL Albumin/Globulin Ratio 1.5 (1-2) Lipase 85 (73-393) U/L Urine Color Yellow (Yellow) Urine Appearance Clear (Clear) Urine pH 7.0 (5.0-8.0) Ur Specific [place] 1.020 (1.005-1.030) Urine Protein Negative (Negative) Urine Glucose (UA) Negative (Negative) Urine Ketones Negative (Negative) Urine Occult Blood Negative (Negative) Urine Nitrite Negative (Negative) Urine Bilirubin Negative (Negative) Urine Urobilinogen 0.2 (0.2-1.0) Ur Leukocyte Esterase Negative (Negative) Urine RBC 0-5 (0-5) /hpf Urine WBC 0-5 (0-5) /hpf Ur Epithelial Cells Not seen (0-5) /hpf Urine Bacteria Rare (FEW) /hpf Urine Mucus Not seen (FEW) /hpf Meds: Medications Generic Name Dose Route Start Last Admin Trade Name Freq PRN Reason Stop Dose Admin Sodium Chloride 1,000 mls @ 125 mls/hr 11/19/20 01:00 11/19/20 01:14 Normal Saline IV 125 mls/hr ASDIRECTED BARON Administration Sodium Chloride 10 ml 11/19/20 00:53 11/19/20 01:16 Saline Flush FLUSH 10 ml ASDIRECTED PRN Administration Keep Vein Open Discontinued Medications Generic Name Dose Route Start Last Admin Trade Name Freq PRN Reason Stop Dose Admin Ketorolac Tromethamine 30 mg 11/19/20 00:54 11/19/20 01:15 Toradol IVPUSH 11/19/20 00:55 30 mg ONETIME ONE Administration Ondansetron HCl 4 mg 11/19/20 00:53 11/19/20 01:14 Zofran IVPUSH 11/19/20 00:54 4 mg ONETIME ONE Administration - Re-Assessments/Exams Free Text/Narrative Re-Assessment/Exam: 11/19/20 02:52 I ordered an IV NS at 125mL/hr, zofran 4mg IV, toradol 30mg IV, labs, UA and a CT of his abdomen and pelvis without IV or oral contrast. His CBC and CMP look good. His lipase is normal. His CT shows a relatively small left kidney in comparison to the right with cortical scarring consistent with prior left-sided kidney infections. Please correlate with urinalysis to rule out any current infection. No evidence for renal or ureteral calculi. There is no hydronephrosis. 11/19/20 03:04 His UA looks good. His GC will be more time. I will discharge him and call him if it is positive. Departure - Departure Time of Disposition: 03:05 Disposition: Home, Self-Care 01 Condition: Good Clinical Impression: Left low back pain Qualifiers: Chronicity: acute Sciatica presence: without sciatica Qualified Code(s): M54.5 - Low back pain - Discharge Information *PRESCRIPTION DRUG MONITORING PROGRAM REVIEWED*: Not Applicable *COPY OF PRESCRIPTION DRUG MONITORING REPORT IN PATIENT JOSE C: Not Applicable Prescriptions: Cyclobenzaprine [Flexeril] 10 mg PO TID PRN #10 tab PRN Reason: Pain Referrals: PCP,None [Primary Care Provider] - Izzy Barry MD [Physician] - 1 Week Forms: ED Department Discharge, ED Return to Work/School Form Additional Instructions: Take tylenol or motrin for the pain. If that does not help, try the flexeril. Follow up with Dr Barry if you are not better in a week. Please return if you are worse. Sepsis Event Note (ED) - Evaluation Sepsis Screening Result: No Definite Risk - Focused Exam Vital Signs: Vital Signs Temp Pulse Resp BP Pulse Ox 11/19/20 00:21 98.4 F 79 20 154/83 H 100 - My Orders Last 24 Hours: My Active Orders 11/19/20 00:53 Abdomen Pelvis wo Cont [CT] Stat Sodium Chloride 0.9% [Saline Flush] 10 ml FLUSH ASDIRECTED PRN ED Antiemetic Medication Reflex [OM.PC] Stat Peripheral IV Insertion Adult [OM.PC] Stat 11/19/20 00:54 Peripheral IV Care [RC] . DIRECTED 11/19/20 00:55 GC/CHLAMYDIA BY PCR [MOLEC] Stat 11/19/20 01:00 Sodium Chloride 0.9% [Normal Saline] 1,000 ml IV ASDIRECTED - Assessment/Plan Last 24 Hours: My Active Orders 11/19/20 00:53 Abdomen Pelvis wo Cont [CT] Stat Sodium Chloride 0.9% [Saline Flush] 10 ml FLUSH ASDIRECTED PRN ED Antiemetic Medication Reflex [OM.PC] Stat Peripheral IV Insertion Adult [OM.PC] Stat 11/19/20 00:54 Peripheral IV Care [RC] . DIRECTED 11/19/20 00:55 GC/CHLAMYDIA BY PCR [MOLEC] Stat 11/19/20 01:00 Sodium Chloride 0.9% [Normal Saline] 1,000 ml IV ASDIRECTED
[2020-11-19 03:34] LABS: C. TRACHOMATIS BY PCR NOT DETECTED; N. GONORRHOEAE BY PCR NOT DETECTED
--- NOTE | 2020-11-19 07:21 | CT ---
CT abdomen and pelvis Technique: Multiple axial sections were obtained from above the dome of the diaphragm inferiorly through the pubic symphysis. Intravenous and oral contrast was not utilized. Study has been performed as a ureteral stone protocol. Comparison: No prior abdominal and/or pelvis CT exam is available. Findings: Left kidney is smaller than the right side. There is some areas of cortical thinning within the left kidney. Findings are most likely chronic. Kidneys show no abnormal calcifications. No ureteral dilatation is seen. No ureteral stones are noted. No bladder calculi are seen. Visualized lung bases show nothing acute. Noncontrast appearance of the liver and spleen shows no focal abnormality. Adrenal glands show no nodule. Pancreas shows no discrete abnormality. Gallbladder contains no calcified gallstones. Aorta shows no aneurysm. No retroperitoneal adenopathy or mesenteric abnormalities are seen. Appendix is seen which is normal. No pelvic mass or adenopathy is seen. No free fluid or inflammatory change is appreciated. Bone window settings were reviewed which appear within normal limits for the patient's age. Impression: 1. Small left kidney with areas of cortical thinning which are likely chronic. 2. No renal calculi, ureteral dilatation or ureteral stone is seen. 3. Nothing acute is appreciated on noncontrast CT study of the abdomen and pelvis. Diagnostic code #2 I agree with preliminary report from 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
== END 2020-11-19 03:36 | disposition home or self-care (01) ==
LOC: JD.ED 00:15
DX: M54.5 Low back pain (principal); Z87.891 Personal history of nicotine dependence
CPT/HCPCS: 36415; 74176; 80053; 81001; 83690; 85025; 87491; 87591; 96374; 96375; 99284; J1885; J2405; J7030

== ENCOUNTER 2020-11-28 19:40 | Emergency (ER) | payer OTHER ==
[2020-11-28 19:49] VITALS: BP 151/78; PULSE 82
[2020-11-28] MEDS ORDERED: Ketorolac 60 MG/2 ML SDV IM ONE (20:27)
--- NOTE | 2020-11-28 21:16 | EDM.PDOC ---
ED HPI GENERAL MEDICAL PROBLEM - General Chief Complaint: Headache Stated Complaint: HEADACHE Time Seen by Provider: 11/28/20 19:50 Source of Information: Reports: Patient History Limitations: Reports: No Limitations - History of Present Illness INITIAL COMMENTS - FREE TEXT/NARRATIVE: 20-year-old male presents the emergency department with complaints of headache pain that started about 2 hours ago. Patient states that he took milligrams of ibuprofen and it did not seem to help. Patient states that he was just laying in bed watching TV when he developed a headache pain and it is a throbbing type of pain to the occipital area. He denies any phonophobia or photophobia. He denies having any halos in his vision. Denies any blurred vision or double vision. Occipital Headache Pain Score (Numeric/FACES): 6 - Related Data Allergies Allergy/AdvReac Type Severity Reaction Status Date / Time No Known Allergies Allergy Verified 11/28/20 19:49 Home Meds: Home Meds . [No Known Home Meds] 11/28/20 [History] Past Medical History - Past Health History Medical/Surgical History: Denies Medical/Surgical History Cardiovascular History: Reports: None Respiratory History: Reports: None Gastrointestinal History: Reports: None Genitourinary History: Reports: Other (See Below) Other Genitourinary History: epididymitis Psychiatric History: Reports: ADHD, Anxiety Oncologic (Cancer) History: Reports: None - Past Surgical History HEENT Surgical History: Reports: Adenoidectomy, Myringotomy w Tube(s), Tonsillectomy Musculoskeletal Surgical History: Reports: Arthroscopic Knee, Other (See Below) Other Musculoskeletal Surgeries/Procedures:: bilateral wrist sx Social & Family History - Family History Family Medical History: No Pertinent Family History - Tobacco Use Tobacco Use Status *Q: Never Tobacco User - Caffeine Use Caffeine Use: Reports: None - Recreational Drug Use Recreational Drug Use: No - Living Situation & Occupation Living situation: Reports: Single, with Family (Brother) Occupation: Employed ([employer]) ED ROS GENERAL - Review of Systems Review Of Systems: Comprehensive ROS is negative, except as noted in HPI. - Physical Exam Exam: See Below Exam Limited By: No Limitations General Appearance: Alert, WD/WN, No Apparent Distress Eye Exam: Bilateral Eye: EOMI, PERRL Ears: Hearing Grossly Normal Nose: Normal Inspection Throat/Mouth: Normal Inspection, Normal Lips, Normal Voice, No Airway Compromise Head Exam: Atraumatic, Normocephalic Neck: Normal Inspection, Supple, Non-Tender, Full Range of Motion. No: Tender Lateral, Tender Midline Respiratory/Chest: No Respiratory Distress, Lungs Clear, Normal Breath Sounds, No Accessory Muscle Use, Chest Non-Tender Cardiovascular: Normal Peripheral Pulses, Regular Rate, Rhythm, No Edema GI/Abdominal: Normal Bowel Sounds, Soft, Non-Tender, No Distention (Male) Exam: Deferred Rectal (Males) Exam: Deferred Neuro Exam (Abbreviated): Alert, Oriented, CN II-XII Intact, Normal Cognition, Normal Gait Back Exam: Normal Inspection, Full Range of Motion Extremities: Normal Inspection, Normal Range of Motion, Non-Tender, No Pedal Edema, Normal Capillary Refill Psychiatric: Normal Affect, Normal Mood Skin Exam: Warm, Dry, Intact, Normal Color, No Rash Course - Vital Signs Text/Narrative:: 20-year-old male who presents to the emergency department this evening with complaints of a headache pain that started about 2 hours ago. Patient denies history of migraine headaches. Denies any recent trauma. Denies any use of blood thinners. He does admit to vaping. He denies smoking cigarettes or marijuana use. States he was laying in bed this evening when the headache pain started it is a dull ache to the occipital area of his skull. Upon assessment patient denies any photophobia or phonophobia or halos in his vision. Denies any blurred vision or double vision. Denies any nausea or vomiting. Denies any recent fever or chills. Denies sore throat or cough. Upon assessment patient does not have spinal or paraspinal tenderness to the base of the skull. Headache pain is not worsened or better with palpation. Patient states he took 2 ibuprofen shortly before coming to the emergency department and stated it did not help. Patient states he has been under a significant amount of stress as he just lost his job 3 days ago. I have ordered for the patient to receive Toradol 60 mg IM x1 dose and we will monitor him for a while while in the emergency department. Full neuro exam was completed and this is unremarkable as well. Last Recorded V/S: Last Vital Signs Temp 98.0 F 11/28/20 19:46 Pulse 82 11/28/20 19:46 Resp 16 02/27/21 19:46 BP 151/78 H 11/28/20 19:46 Pulse Ox 100 11/28/20 19:46 - Orders/Labs/Meds Meds: Medications Discontinued Medications Generic Name Dose Route Start Last Admin Trade Name Eileen PRN Reason Stop Dose Admin Ketorolac Tromethamine 60 mg 11/28/20 20:27 11/28/20 20:36 Toradol IM 11/28/20 20:28 60 mg ONETIME ONE Administration Departure - Departure Time of Disposition: 21:18 Disposition: Home, Self-Care 01 Condition: Good Clinical Impression: Headache Qualifiers: Headache type: tension-type Headache chronicity pattern: acute headache Intractability: not intractable Qualified Code(s): G44.209 - Tension-type headache, unspecified, not intractable - Discharge Information Instructions: General Headache Without Cause, [id number], Pain Medicine Instructions, [id number] Referrals: Pasha Lua PA-C [Primary Care Provider] - Additional Instructions: You were seen today in the emergency department complaints of headache pain to the back your head which started about 2 hours prior to the arrival in the emergency department. You stated you took ibuprofen and this did not seem to help the pain. You denied any sensitivity to light or sound. You denied any blurred vision or double vision. You were given a shot of Toradol And you stated that this seemed to help the headache pain significantly. You will be discharged home. Rest. Drink plenty of fluids. Should your headache return and it is unbearable, you have blurred vision double vision, you have sensitivity to light or sound or see halos around lights do not hesitate to return to the emergency department. Sepsis Event Note (ED) - Evaluation Sepsis Screening Result: No Definite Risk - Focused Exam Vital Signs: Vital Signs Temp Pulse Resp BP Pulse Ox 11/28/20 19:46 98.0 F 82 16 151/78 H 100
== END 2020-11-28 21:26 | disposition home or self-care (01) ==
LOC: JD.ED 19:40
DX: G44.209 Tension-type headache, unspecified, not intractable (principal)
CPT/HCPCS: 96372; 99283; J1885

== ENCOUNTER 2020-12-10 01:05 | Emergency (ER) | payer OTHER ==
[2020-12-10 01:40] VITALS: BP 147/89; PULSE 67
[2020-12-10] MEDS ORDERED: Orphenadrine 100 MG Tab.ER PO STA (02:38)
--- NOTE | 2020-12-10 02:47 | EDM.PDOC ---
ED HPI GENERAL MEDICAL PROBLEM - General Chief Complaint: Headache Stated Complaint: HEAD PRESSURE Time Seen by Provider: 12/10/20 02:19 Source of Information: Reports: Patient History Limitations: Reports: No Limitations - History of Present Illness INITIAL COMMENTS - FREE TEXT/NARRATIVE: Mr. Mancilla is a pleasant 20-year-old man with a past medical history significant for untreated anxiety, who now presents the ED stating that he has had a headache, felt as a pressure sensation to the top of his scalp, on and off since late September. Medical records indicate that he was seen in this ED on 10/15/2020, where a CT of his head was negative. He states that he was seen at the walk-in clinic on 12/09/2020, and that his BP was in the 160s, therefore they prescribed for him an antihypertensive medication, whose name he does not recall, and referred him to a Neurologist whose name he does not recall. He states that he filled the prescription for the antihypertensive medication, and that he has been taking it as prescribed, but his headache has persisted. The patient denies photophobia or phonophobia. No visual changes, such as wavy lines, flashing lights, or blurry vision. No nausea or vomiting. No neurologic symptoms, such as tingling, numbness, or weakness. The patient has not followed up with his PCP since the onset of his symptoms, stating that he has not had the time. The patient has been unemployed, however, since 11/25/2020. Here in the ED, the patient's initial BP is found to be slightly elevated at 147/89, otherwise, he is hemodynamically stable, afebrile, saturating 97% on room air. Other than his recurrent headache, the patient denies having a recent fever, chills, sore throat, ear pain, nasal or sinus congestion, cough, dyspnea, chest pain, palpitations, nausea, vomiting, constipation, diarrhea, abdominal pain, urinary symptoms, recent weight gain or weight loss, recent bloody bowel movements or black bowel movements, recent joint aches, headaches, or rashes. The patient's PCP is FATUMA Urrutia. He received an influenza vaccine on 10/09/2020. - Related Data Allergies Allergy/AdvReac Type Severity Reaction Status Date / Time No Known Allergies Allergy Verified 12/10/20 01:39 Home Meds: Home Meds Orphenadrine [Norflex] 1 tab PO Q12H PRN #10 tab.er 12/10/20 [Rx] Past Medical History Psychiatric History: Reports: ADHD (untreated), Anxiety (untreated) - Past Surgical History HEENT Surgical History: Reports: Adenoidectomy, Myringotomy w Tube(s) (bilateral), Tonsillectomy Musculoskeletal Surgical History: Reports: Arthroscopic Knee (right), Other (See Below) (Bilateral wrist pinning) Social & Family History - Tobacco Use Tobacco Use Status *Q: Former Tobacco User Tobacco Use Within Last Twelve Months: Smokeless Tobacco, Vaping (Nicotine) Years of Tobacco use: 4 Packs/Tins Daily: 0.5 Month/Year Tobacco Last Used: Quit 2019 - Caffeine Use Caffeine Use: Reports: None - Alcohol Use Alcohol Use History: Yes Alcohol Use Frequency: Socially - Recreational Drug Use Recreational Drug Use: No - Living Situation & Occupation Living situation: Reports: Single, with Family (Brother) Occupation: Unemployed ED ROS GENERAL - Review of Systems Review Of Systems: Comprehensive ROS is negative, except as noted in HPI. - Physical Exam Exam: See Below Exam Limited By: No Limitations General Appearance: Alert, WD/WN, No Apparent Distress Eye Exam: Bilateral Eye: EOMI, Normal Inspection, PERRL Ears: Normal External Exam, Normal Canal, Hearing Grossly Normal, Normal TMs Nose: Normal Inspection, Normal Mucosa, No Blood Throat/Mouth: Normal Inspection, Normal Lips, Normal Teeth, Normal Gums, Normal Oropharynx, Normal Voice, No Airway Compromise Head Exam: Atraumatic, Normocephalic, Scalp Tenderness (reproducible, to the superior scalp) Neck: Normal Inspection, Supple, Non-Tender, Full Range of Motion. No: Lymphadenopathy (L), Lymphadenopathy (R) Respiratory/Chest: No Respiratory Distress, Lungs Clear, Normal Breath Sounds, No Accessory Muscle Use Cardiovascular: Normal Peripheral Pulses, Regular Rate, Rhythm, No Edema, No Gallop, No JVD, No Murmur, No Rub GI/Abdominal: Normal Bowel Sounds, Soft, Non-Tender, No Organomegaly, No Distention, No Abnormal Bruit, No Mass Neuro Exam (Abbreviated): Alert, Oriented, CN II-XII Intact, Normal Cognition, No Motor/Sensory Deficits Back Exam: Normal Inspection, Full Range of Motion, NT Extremities: Normal Inspection, Normal Range of Motion, No Pedal Edema, Normal Capillary Refill Psychiatric: Normal Affect Skin Exam: Warm, Dry, Intact, Normal Color, No Rash Course - Vital Signs Last Recorded V/S: Last Vital Signs Temp 36.7 C 12/10/20 01:36 Pulse 67 12/10/20 01:36 Resp 18 12/10/20 01:36 BP 147/89 H 12/10/20 01:36 Pulse Ox 97 12/10/20 01:36 - Re-Assessments/Exams Free Text/Narrative Re-Assessment/Exam: 12/10/20 02:41 As above, the patient has had a headache on and off since late September, currently described as a pressure sensation to the top of his head, which is reproducible with palpation. A CT of his head on 10/15/2020 was unremarkable. He was seen at the walk-in clinic yesterday, and treated with an antihypertensive, whose name he does not recall, due to a SBP around 160 mmHg. He states that he was referred to a Neurologist, whose name he does not recall. Here in the ED, his BP is currently 144/81, and his neurologic examination is completely normal. I suspect that the patient's headache is a tension-type headache, therefore I am recommending that we treat him with Norflex, to see if that helps. I will prescribe a relatively short course. If it works, he can follow-up with his PCP to get an additional prescription. Part of his problem may also be his untreated anxiety, so it would be a good idea for him to follow-up with his PCP in that regard, anyway. If the Norflex doesn't work, he can follow-up with the Neurologist that he was referred to yesterday. I am recommending that he NOT take the antihypertensive that he was prescribed yesterday, as a single reading of a SBP of 160 does not constitute hypertension, and does not warrant medical treatment. Departure - Departure Time of Disposition: 02:45 Disposition: Home, Self-Care 01 Condition: Good Clinical Impression: Tension type headache - Discharge Information *PRESCRIPTION DRUG MONITORING PROGRAM REVIEWED*: Not Applicable *COPY OF PRESCRIPTION DRUG MONITORING REPORT IN PATIENT JOSE C: Not Applicable Prescriptions: Orphenadrine [Norflex] 1 tab PO Q12H PRN #10 tab.er PRN Reason: Headache Instructions: Tension Headache, Adult Referrals: Pasha Lua PA-C [Primary Care Provider] - Forms: ED Department Discharge Additional Instructions: You were seen in the emergency room for a continued headache. Based on your history and physical examination, your headache is most likely a tension type headache. You have been started on the muscle relaxant Norflex, and a prescription for Norflex has been sent to the [facility], located at [address] [place] [address]. Take 1 tablet of Norflex every 12 hours, starting this evening, , 12/10/2020, as prescribed. If the Norflex is effective in treating your headache, please follow-up with your PCP, FATUMA Urrutia, to obtain an additional prescription. We also recommend that you discuss treatment options for your anxiety and you see him. If the Norflex does not help with your headache, we recommend that you follow-up with the Neurologist that you were referred to yesterday. If any other problems, please do not hesitate to return to the ER. Sepsis Event Note (ED) - Evaluation Sepsis Screening Result: No Definite Risk
== END 2020-12-10 02:55 | disposition home or self-care (01) ==
LOC: JD.ED 01:05
DX: G44.209 Tension-type headache, unspecified, not intractable (principal); Z87.891 Personal history of nicotine dependence
CPT/HCPCS: 99283; A9270

== ENCOUNTER 2021-03-01 01:59 | Emergency (ER) | payer OTHER ==
[2021-03-01 02:08] VITALS: BP 139/83; PULSE 61
--- NOTE | 2021-03-01 02:34 | EDM.PDOC ---
ED HPI GENERAL MEDICAL PROBLEM - General Chief Complaint: Cardiovascular Problem Stated Complaint: bp issues on meds feels himself pulsing Time Seen by Provider: 03/01/21 02:10 Source of Information: Reports: Patient History Limitations: Reports: No Limitations - History of Present Illness INITIAL COMMENTS - FREE TEXT/NARRATIVE: Mr. Mancilla is a pleasant 20-year-old gentleman who now presents the ED concerned that his blood pressure is elevated. He states that for the past 2 days he has felt like his body is pulsating, which he is concerned is due to elevated blood pressure. Because he had an elevated blood pressure reading in the clinic at one time in the past, he was prescribed propranolol 10 mg po BID, however, he only takes it when he feels like his blood pressure is high. He does not actually check his blood pressure. He states that she resumed taking his propranolol a couple of days ago, but when his symptoms persisted, he took 3.5 tablets (35 mg) around 1:00 this morning. Here in the ED, the patient is found to be hemodynamically stable, afebrile, saturating 100% on room air. He appears to be comfortable, in no acute distress. Prior to 2 days ago, the patient denies having a recent fever, chills, sore throat, ear pain, nasal or sinus congestion, cough, dyspnea, chest pain, palpitations, nausea, vomiting, constipation, diarrhea, abdominal pain, urinary symptoms, recent weight gain or weight loss, recent bloody bowel movements or black bowel movements, recent joint aches, headaches, or rashes. The patient's PCP is FATUMA Urrutia. - Related Data Allergies Allergy/AdvReac Type Severity Reaction Status Date / Time No Known Allergies Allergy Verified 03/01/21 02:08 Home Meds: Home Meds Sertraline [Zoloft] 25 mg PO DAILY 01/24/21 [History] Propranolol [Inderal] 10 mg PO BID 03/01/21 [History] Past Medical History Psychiatric History: Reports: ADHD (untreated), Anxiety - Past Surgical History HEENT Surgical History: Reports: Adenoidectomy, Myringotomy w Tube(s) (bilateral), Tonsillectomy Musculoskeletal Surgical History: Reports: Arthroscopic Knee (right), Other (See Below) (Bilateral wrist pinning) Social & Family History - Tobacco Use Tobacco Use Status *Q: Current Every Day Tobacco User Tobacco Use Within Last Twelve Months: Smokeless Tobacco (Chews on occasion), Vaping (Nicotie) Years of Tobacco use: 4 Packs/Tins Daily: 1 Tobacco Use Comment: Started smoking at 16 yrs old - Caffeine Use Caffeine Use: Reports: Coffee, Energy Drinks, Soda, Tea - Alcohol Use Alcohol Use History: Yes Alcohol Use Frequency: Socially - Recreational Drug Use Recreational Drug Use: Yes Drug Use in Last 12 Months: Yes Recreational Drug Type: Reports: Marijuana/Hashish (last smoked April 2020) - Living Situation & Occupation Living situation: Reports: Single, with Family (Brother) Occupation: Employed ([employer]) ED ROS GENERAL - Review of Systems Review Of Systems: Comprehensive ROS is negative, except as noted in HPI. ED EXAM, GENERAL - Physical Exam Exam: See Below Exam Limited By: No Limitations General Appearance: Alert, WD/WN, No Apparent Distress Eye Exam: Bilateral Eye: EOMI, Normal Inspection Ears: Normal External Exam, Hearing Grossly Normal Nose: Normal Inspection Throat/Mouth: Normal Inspection, Normal Lips, Normal Voice, No Airway Compromise Head: Atraumatic, Normocephalic Neck: Normal Inspection, Full Range of Motion Respiratory/Chest: No Respiratory Distress, Lungs Clear, Normal Breath Sounds, No Accessory Muscle Use Cardiovascular: Normal Peripheral Pulses, Regular Rate, Rhythm, No Edema, No Gallop, No JVD, No Murmur, No Rub Peripheral Pulses: 3+: Radial (L), Radial (R) GI/Abdominal: Normal Bowel Sounds, Soft, Non-Tender, No Organomegaly, No Distention, No Abnormal Bruit, No Mass Back Exam: Normal Inspection, Full Range of Motion, NT Extremities: Normal Inspection, Normal Range of Motion, No Pedal Edema, Normal Capillary Refill Neurological: Alert, Oriented, Normal Cognition, No Motor/Sensory Deficits Psychiatric: Normal Affect Skin Exam: Warm, Dry, Intact, Normal Color, No Rash Course - Vital Signs Last Recorded V/S: Last Vital Signs Temp 36.1 C 03/01/21 02:05 Pulse 61 03/01/21 02:05 Resp 14 03/01/21 02:05 BP 139/83 03/01/21 02:05 Pulse Ox 100 03/01/21 02:05 - Re-Assessments/Exams Free Text/Narrative Re-Assessment/Exam: 05/31/21 02:27 As above, the patient has been experiencing a body pulsing sensation for a couple of days, therefore started taking propranolol 10 mg BID a couple of days ago, then 3.5 tablets around 1:00 this morning, believing that his symptoms are due to elevated blood pressure. He does not actually have a diagnosis of hypertension; the propranolol was prescribed based on a single elevated BP reading in the clinic. Here in the ED, his vital signs are completely normal, although his oxygen saturation is 100% on room air, consistent with hyperventilation. I suspect that the patient's symptoms of body pulsing are due to his underlying anxiety. I advised the patient to be careful when getting up for the next day - if he starts feeling lightheaded, he will need to rise slowly. After that, I recommended that he check his blood pressure 2-3 times a week over the next few weeks, but only under restful conditions, to determine if he in fact has hypertension. Departure - Departure Time of Disposition: 02:30 Disposition: Home, Self-Care 01 Condition: Good Clinical Impression: Anxiety - Discharge Information *PRESCRIPTION DRUG MONITORING PROGRAM REVIEWED*: Not Applicable *COPY OF PRESCRIPTION DRUG MONITORING REPORT IN PATIENT JOSE C: Not Applicable Instructions: Managing Anxiety, Adult Referrals: Pasha Lua PA-C [Primary Care Provider] - Forms: ED Department Discharge Additional Instructions: You were seen in the emergency room after experiencing the sensation of your body pulsing for the past 2 days, with concerned that it may be due to elevated blood pressure. As discussed, elevated blood pressure does not cause symptoms. Based on your history and physical examination, your symptoms are most likely due to anxiety. As discussed, we recommend that you rise slowly for the next day. If you feel lightheaded, remain seated before standing up. Going forward, we recommend that you stop taking the propranolol. In order to determine if you have hypertension or not, we recommend that you purchase an [id number] blood pressure monitor and check your blood pressure 2-3 times per week, for 2 to 3 weeks, at different times of the day. Write the numbers down. Only check your blood pressure if you are under restful conditions = you are seated for at least 5, and preferably 15 minutes, that you are not in pain, you are not anxious, and you are not sick. Make sure that the arm that you are checking your blood pressure and is supported, with the cuff at the level of your heart. After 2 to 3 weeks, follow-up with your PCP, FATUMA Urrutia, and show him your blood pressure values. He can then determine if you have hypertension or not. If any other problems, please do not hesitate to return to the ER. Sepsis Event Note (ED) - Evaluation Sepsis Screening Result: No Definite Risk - Focused Exam Vital Signs: Vital Signs Temp Pulse Resp BP Pulse Ox 03/01/21 02:05 36.1 C 61 14 139/83 100
== END 2021-03-01 02:40 | disposition home or self-care (01) ==
LOC: JD.ED 01:59
DX: F41.9 Anxiety disorder, unspecified (principal); Z72.0 Tobacco use; Z79.899 Other long term (current) drug therapy
CPT/HCPCS: 99283

== ENCOUNTER 2021-07-11 00:17 | Emergency (ER) | payer SELFPAY ==
[2021-07-11] MEDS ORDERED: Lidocaine 1% with EPINEPHrine 1:100,000 10 ML MDV ONE (01:02)
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
[2021-07-11] MEDS ORDERED: Lidocaine 1% with EPINEPHrine 1:100,000 10 ML MDV INJECT ONE (03:13)
[2021-07-11 03:15] VITALS: BP 129/67; PULSE 76
== END 2021-07-11 03:11 ==
LOC: JD.ED 00:17
DX: S01.511A Laceration without foreign body of lip, initial encounter (principal); V49.40XA Driver injured in collision with unspecified motor vehicles in traffic accident, initial encounter; Y92.410 Unspecified street and highway as the place of occurrence of the external cause
CPT/HCPCS: 12011; 13131; 99284-25

== ENCOUNTER 2022-05-14 12:48 | Emergency (ER) | payer OTHER ==
[2022-05-14] MEDS ORDERED: Sodium Chloride 0.9% 10 ML Syringe FLUSH PRN (12:58)
[2022-05-14 12:59] VITALS: BP 155/95; PULSE 87
[2022-05-14] MEDS ORDERED: Sodium Chloride 0.9% 1,000 ML IV STA (13:12)
== END 2022-05-14 14:54 | disposition home or self-care (01) ==
LOC: JD.ED 12:48
DX: R42 Dizziness and giddiness (principal); I10 Essential (primary) hypertension; Z79.899 Other long term (current) drug therapy
CPT/HCPCS: 36415; 80053; 80307; 83735; 85025; 96360; 99284; J3490; J7030

== ENCOUNTER 2022-07-20 21:08 | Emergency (ER) | payer OTHER ==
[2022-07-20 21:46] VITALS: BP 132/82; PULSE 82
[2022-07-20] MEDS ORDERED: Ketorolac 60 MG/2 ML SDV IM ONE (22:17)
[2022-07-20] MEDS ORDERED: Ondansetron 4 MG Tab.DIS PO ONE (22:18)
[2022-07-20 23:10] LABS: CORONAVIRUS COVID-19 NAA NEGATIVE (NEGATIVE)
[2022-07-21 00:02] LABS: C. TRACHOMATIS BY PCR NOT DETECTED; N. GONORRHOEAE BY PCR NOT DETECTED
== END 2022-07-21 01:15 | disposition home or self-care (01) ==
LOC: JD.ED 21:08
DX: G44.209 Tension-type headache, unspecified, not intractable (principal); N50.82 Scrotal pain; R36.9 Urethral discharge, unspecified; Z20.822 Contact with and (suspected) exposure to COVID-19
CPT/HCPCS: 0240U; 36415; 76870; 80053; 81001; 85025; 87491; 87591; 93975; 96372; 99284; A9270; J1885

== ENCOUNTER 2023-03-07 13:15 | Emergency (ER) | payer SELFPAY ==
[2023-03-07 13:30] VITALS: BP 144/86
[2023-03-07] MEDS ORDERED: Sodium Chloride 0.9% 10 ML Syringe FLUSH PRN (13:38)
[2023-03-07] MEDS ORDERED: Morphine 4 MG/ML Syringe IVPUSH PRN (13:38)
[2023-03-07] MEDS ORDERED: Aspirin 81 MG Tab.Chew PO ONE (13:38)
[2023-03-07 13:47] LABS: BASOPHILS ABSOLUTE AUTO 0.04 K/mm3 (0.01-0.08); BASOPHILS PERCENT AUTO 0.7 % (0.1-1.2); EOSINOPHILS PERCENT AUTO 3.5 (0.8-7.0); HEMATOCRIT 47.2 % (40.1-51.0); HEMOGLOBIN 15.9 gm/dl (13.7-17.5); LYMPHOCYTES PERCENT AUTO 31.3 % (21.8-53.1); MEAN CORPUSCULAR HEMOGLOBIN 28.1 pg (25.7-32.2); MEAN CORPUSCULAR HGB CONC 33.7 g/dl (32.2-35.5); MEAN CORPUSCULAR VOLUME 83.5 fl (79.0-92.2); MEAN PLATELET VOLUME 10.5 fl (9.4-12.3); MONOCYTES ABSOLUTE AUTO 0.53 K/mm3 (0.30-0.82); MONOCYTES PERCENT AUTO 9.2 % (5.3-12.2); NEUTROPHILS ABSOLUTE AUTO 3.18 K/mm3 (1.78-5.38); NEUTROPHILS PERCENT AUTO 55.3 % (34.0-67.9); PLATELET COUNT,PLT 262 K/mm3 (163-337); RED BLOOD CELL COUNT 5.65 M/mm3 (4.63-6.08); WHITE BLOOD CELL COUNT,WBC 5.75 K/mm3 (4.23-9.07)
[2023-03-07 14:19] LABS: A/G RATIO 1.3 (1-2); ALANINE AMINOTRANSFERASE,ALT 49 U/L (16-63); ALBUMIN 4.2 g/dl (3.4-5.0); ALKALINE PHOSPHATASE 72 U/L (46-116); ANION GAP 12.5 (5-15); ASPARTATE AMNIOTRANSFERASE,AST 30 U/L (15-37); BILIRUBIN TOTAL 0.3 mg/dL (0.2-1.0); BLOOD UREA NITROGEN,BUN 12 mg/dL (7-18); CALCIUM 8.8 mg/dL (8.5-10.1); CARBON DIOXIDE,CO2 26 mEq/L (21-32); CHLORIDE,CL 105 mEq/L (98-107); CREATININE 0.8 mg/dL (0.7-1.3); EST CRCL DRUG DOSING (CG) 163.68 mL/min; ESTIMATED GFR 128 mL/min (>60); GLUCOSE RANDOM 102 mg/dL (70-99); POTASSIUM,K 3.5 mEq/L (3.5-5.1); PROTEIN TOTAL,TP 7.4 g/dl (6.4-8.2); SODIUM,NA 140 mEq/L (136-145); TROPONIN I HIGH SENSITIVITY < 4 pg/mL (<=76)
[2023-03-07] MEDS ORDERED: HYDROmorphone 0.5 MG/0.5 ML Syringe IVPUSH ONE (15:32)
[2023-03-07 16:40] VITALS: PULSE 94
== END 2023-03-07 15:55 | disposition home or self-care (01) ==
LOC: JD.ED 13:15
DX: R07.89 Other chest pain (principal); I10 Essential (primary) hypertension; Z79.899 Other long term (current) drug therapy
CPT/HCPCS: 36415; 71045; 80053; 84484; 85025; 93005; 96374; 96375; 99285; A9270; J1170; J2270; J3490

== ENCOUNTER 2023-05-18 08:40 | Emergency (ER) | payer SELFPAY ==
[2023-05-18] MEDS ORDERED: Aspirin 81 MG Tab.Chew PO ONE (08:55)
[2023-05-18] MEDS ORDERED: Sodium Chloride 0.9% 10 ML Syringe FLUSH PRN (08:55)
[2023-05-18] MEDS ORDERED: HYDROmorphone 0.5 MG/0.5 ML Syringe IVPUSH ONE ×2 (08:56→10:56)
[2023-05-18 09:10] LABS: BASOPHILS ABSOLUTE AUTO 0.06 K/mm3 (0.01-0.08); EOSINOPHILS PERCENT AUTO 4.9 (0.8-7.0); HEMATOCRIT 47.2 % (40.1-51.0); HEMOGLOBIN 15.9 gm/dl (13.7-17.5); IMMATURE GRAN ABSOLUTE AUTO 0.01 K/mm3 (0.00-0.10); IMMATURE GRAN PERCENT AUTO 0.2 % (<=1.0); LYMPHOCYTES ABSOLUTE AUTO 1.61 K/mm3 (1.32-3.57); LYMPHOCYTES PERCENT AUTO 26.3 % (21.8-53.1); MEAN CORPUSCULAR HEMOGLOBIN 28.3 pg (25.7-32.2); MEAN CORPUSCULAR HGB CONC 33.7 g/dl (32.2-35.5); MEAN PLATELET VOLUME 10.4 fl (9.4-12.3); MONOCYTES ABSOLUTE AUTO 0.53 K/mm3 (0.30-0.82); MONOCYTES PERCENT AUTO 8.6 % (5.3-12.2); NEUTROPHILS ABSOLUTE AUTO 3.62 K/mm3 (1.78-5.38); PLATELET COUNT,PLT 271 K/mm3 (163-337); RED BLOOD CELL COUNT 5.62 M/mm3 (4.63-6.08); WHITE BLOOD CELL COUNT,WBC 6.13 K/mm3 (4.23-9.07)
[2023-05-18 09:31] LABS: A/G RATIO 1.3 (1-2); ALANINE AMINOTRANSFERASE,ALT 38 U/L (16-63); ALBUMIN 4.1 g/dl (3.4-5.0); ALKALINE PHOSPHATASE 60 U/L (46-116); ANION GAP 12.9 (5-15); ASPARTATE AMNIOTRANSFERASE,AST 21 U/L (15-37); BILIRUBIN TOTAL 0.3 mg/dL (0.2-1.0); BLOOD UREA NITROGEN,BUN 18 mg/dL (7-18); CALCIUM 9.1 mg/dL (8.5-10.1); CARBON DIOXIDE,CO2 28 mEq/L (21-32); CHLORIDE,CL 103 mEq/L (98-107); EST CRCL DRUG DOSING (CG) 130.95 mL/min; ESTIMATED GFR 109 mL/min (>60); GLUCOSE RANDOM 106 mg/dL (70-99); POTASSIUM,K 3.9 mEq/L (3.5-5.1); PROTEIN TOTAL,TP 7.3 g/dl (6.4-8.2); SODIUM,NA 140 mEq/L (136-145)
[2023-05-18 09:36] LABS: TROPONIN I HIGH SENSITIVITY < 4 pg/mL (<=76)
[2023-05-18] MEDS ORDERED: Famotidine 20 MG/2 ML SDV IVPUSH ONE (10:56)
[2023-05-18 18:50] VITALS: BP 132/73; PULSE 75
== END 2023-05-18 11:17 | disposition home or self-care (01) ==
LOC: JD.ED 08:40
DX: R07.89 Other chest pain (principal); I10 Essential (primary) hypertension
CPT/HCPCS: 36415; 71045; 80053; 84484; 85025; 85379; 93005; 96374; 96375; 96376; 99285; A9270; J1170; J3490

== ENCOUNTER 2023-11-13 02:37 | Emergency (ER) | payer SELFPAY ==
[2023-11-13 03:09] LABS: BASOPHILS ABSOLUTE AUTO 0.1 K/mm3 (0.0-0.2); BASOPHILS PERCENT AUTO 0.7 % (0.0-1.0); EOSINOPHILS ABSOLUTE AUTO 0.5 K/mm3 (0.0-0.4); EOSINOPHILS PERCENT AUTO 3.2 % (0.0-6.0); HEMATOCRIT 45.5 % (42.0-52.0); HEMOGLOBIN 15.6 gm/dl (14.0-18.0); IMMATURE GRAN ABSOLUTE AUTO 0.05 K/mm3 (0.00-0.05); IMMATURE GRAN PERCENT AUTO 0.3 % (0.0-0.4); LYMPHOCYTES ABSOLUTE AUTO 3.5 K/mm3 (1.0-4.8); LYMPHOCYTES PERCENT AUTO 22.6 % (24.0-44.0); MEAN CORPUSCULAR HEMOGLOBIN 28.3 pg (28.0-32.0); MEAN CORPUSCULAR HGB CONC 34.3 g/dl (32.0-36.0); MEAN CORPUSCULAR VOLUME 82.6 fl (83.0-99.0); MEAN PLATELET VOLUME 9.5 fl (9.4-12.4); MONOCYTES ABSOLUTE AUTO 1.4 K/mm3 (0.0-0.8); MONOCYTES PERCENT AUTO 8.7 % (0.0-8.0); NEUTROPHILS ABSOLUTE AUTO 10.1 K/mm3 (1.8-7.7); NEUTROPHILS PERCENT AUTO 64.5 % (41.0-71.0); PLATELET COUNT,PLT 378 K/mm3 (150-400); RED BLOOD CELL COUNT 5.51 M/mm3 (4.52-5.90); WHITE BLOOD CELL COUNT,WBC 15.61 K/mm3 (3.9-11.3)
[2023-11-13 03:31] LABS: A/G RATIO 1.3 (1-2); ALBUMIN 4.6 g/dl (3.4-5.0); ANION GAP 22.1 (5-15); BILIRUBIN TOTAL 1.4 mg/dL (0.2-1.0); BUN/CREATININE RATIO 13.3 (14-18); CALCIUM 9.7 mg/dL (8.5-10.1); CREATININE 1.2 mg/dL (0.7-1.3); EST CRCL DRUG DOSING (CG) 111.31 mL/min; ETHANOL BLOOD MEDICAL 0.09 gm% (0.00); POTASSIUM,K 4.1 mEq/L (3.5-5.1); PROTEIN TOTAL,TP 8.1 g/dl (6.4-8.2)
[2023-11-13 03:49] LABS: CORONAVIRUS COVID-19 NAA NEGATIVE (NEGATIVE); INFLUENZA A NAA NEGATIVE (NEGATIVE); RESPIRATORY SYNCYTIAL VIR NAA NEGATIVE (NEGATIVE)
[2023-11-13 08:17] LABS: APPEARANCE,URINE CLEAR (Clear); BILIRUBIN,URINE NEGATIVE (Negative); COLOR,URINE YELLOW (Yellow); GLUCOSE,URINE NEGATIVE (Negative); KETONES,URINE 4+ (Negative); LEUKOCYTE ESTERASE,URINE NEGATIVE (Negative); NITRITE,URINE NEGATIVE (Negative); OCCULT BLOOD,URINE TRACE-INTACT (Negative); PH,URINE 5.5 (5.0-8.0); PROTEIN,URINE 1+ (Negative); UROBILINOGEN,URINE 0.2 (0.2-1.0)
[2023-11-13 08:23] LABS: BARBITURATE SCREEN,URINE NEGATIVE (CUTOFF=200); BENZODIAZEPINES SCREEN,URINE NEGATIVE (CUTOFF=150); BUPRENORPHINE SCREEN,URINE NEGATIVE (CUTOFF=10); METHADONE SCREEN, URINE NEGATIVE (CUT0FF=200); METHAMPHETAMINES SCREEN, URINE PRESUMPTIVE POSITIVE (CUTOFF=500); OXYCODONE SCREEN,URINE NEGATIVE (CUT0FF=100); THC SCREEN,URINE 20 NG/ML NEGATIVE (CUTOFF=50)
[2023-11-13 08:31] LABS: AMPHETAMINES SCREEN, URINE PRESUMPTIVE POSITIVE (CUTOFF=500)
[2023-11-13 09:34] LABS: BACTERIA,URINE RARE /hpf (FEW); EPITHELIAL CELLS,URINE 0-5 /hpf (0-5); MUCUS,URINE MODERATE /hpf (FEW); RBC,URINE 0-5 /hpf (0-5); WBC,URINE 0-5 /hpf (0-5)
[2023-11-13] MEDS: LORazepam 1 MG Tab PO ONE (09:51)
[2023-11-13 12:58] VITALS: BP 152/72; PULSE 101
== END 2023-11-13 10:49 ==
LOC: JD.ED 02:37
DX: F10.129 Alcohol abuse with intoxication, unspecified (principal); F19.10 Other psychoactive substance abuse, uncomplicated; I10 Essential (primary) hypertension; Y90.9 Presence of alcohol in blood, level not specified; Z79.899 Other long term (current) drug therapy
CPT/HCPCS: 0241U; 36415; 80053; 80143; 80179; 80306; 80307; 81001; 85025; 99285; A9270; 99283